=== PATIENT | male | born 1945 | race Caucasian/White ===

== ENCOUNTER → 2018-04-03 08:26 | Outpatient (CLI) | payer OTHER, SELFPAY ==
[2018-04-03 09:36] LABS: Add Manual Diff / Slide Review NO; Basophils Percent Auto 1.5 % (0-2); Eosinophils Percent Auto 13.7 % (2-4); Hematocrit 44.5 % (41-53); Hemoglobin 15.5 g/dL (13.5-17.5); Lymphocytes Percent Auto 33.9 % (25-40); Mean Corpuscular HGB Conc 34.7 % (30-36); Mean Corpuscular Hemoglobin 31.9 PG (26-34); Mean Corpuscular Volume 91.9 fL (80-100); Monocytes Percent Auto 8.5 % (3-14); Neutrophils Absolute Auto 1800 /uL (3000-5900); Neutrophils Percent Auto 42.4 % (50-75); Platelet Count 173 X10^3/uL (150-400); Red Blood Cell Count 4.84 X10^6/uL (4.5-5.9); Red Cell Distribution Width 13.2 % (11.6-14.8); White Blood Cell Count 4.2 X10^3/uL (4.5-11.0)
[2018-04-03 09:46] LABS: Alanine Aminotransferase 47 IU/L (21-72); Albumin 4.1 g/dL (3.5-5.0); Albumin Globulin Ratio 1.5 (1.0-2.8); Alkaline Phosphatase 59 U/L (38-126); Aspartate Aminotransferase 40 IU/L (17-59); BUN Creatinine Ratio 23.3 (6-22); Bilirubin Total 0.6 mg/dL (0.2-1.3); Blood Urea Nitrogen 21 mg/dL (9-20); Carbon Dioxide 28 mmol/L (22-32); Chloride 105 mmol/L (98-107); Cholesterol 188 mg/dL (140-199); Estimated Glomerular Filt Rate > 60.0 mL/min (>60); Globulin 2.7 g/dL (1.7-4.1); Glucose 99 mg/dL (80-110); HDL Cholesterol 46 mg/dL (40-60); HEMOLYSIS < 15 (0-50); LDL Cholesterol Calculated 116 mg/dL (<100); Potassium 4.3 mmol/L (3.4-5.1); Sodium 144 mmol/L (137-145); Total Protein 6.8 g/dL (6.3-8.2); Triglycerides 128 mg/dL (35-150)
[2018-04-03 10:12] LABS: Prostate Specific Antigen Scrn 0.501 ng/mL (0.1-4.0)
[2018-04-03 11:42] LABS: Thyroid Stimulating Hormone 1.38 uIU/mL (0.47-4.68)
== END ==
PROVIDERS: PCP Family Medicine; Visit Provider Family Medicine
DX: E78.2 Mixed hyperlipidemia (principal); I10 Essential (primary) hypertension; Z12.5 Encounter for screening for malignant neoplasm of prostate
CPT/HCPCS: 36415; 80053; 80061; 84443; 85025; G0103

== ENCOUNTER → 2019-05-11 07:47 | Outpatient (CLI) | payer OTHER, SELFPAY ==
[2019-05-11 08:33] LABS: Add Manual Diff / Slide Review NO; Basophils Absolute Auto 100 /uL (0-100); Basophils Percent Auto 1.9 % (0-2); Eosinophils Absolute Auto 600 /uL (0-450); Eosinophils Percent Auto 14.7 % (2-4); Hematocrit 44.5 % (41-53); Hemoglobin 15.7 g/dL (13.5-17.5); Lymphocytes Absolute Auto 1400 /uL (1100-4500); Lymphocytes Percent Auto 35.9 % (25-40); Mean Corpuscular HGB Conc 35.2 % (30-36); Mean Corpuscular Hemoglobin 32.2 PG (26-34); Mean Corpuscular Volume 91.4 fL (80-100); Monocytes Absolute Auto 400 /uL (0-900); Monocytes Percent Auto 10.2 % (3-14); Neutrophils Absolute Auto 1500 /uL (1500-7000); Neutrophils Percent Auto 37.3 % (50-75); Platelet Count 229 X10^3/uL (150-400); Red Blood Cell Count 4.87 X10^6/uL (4.5-5.9); Red Cell Distribution Width 13.2 % (11.6-14.8); White Blood Cell Count 3.9 X10^3/uL (4.5-11.0)
[2019-05-11 08:59] LABS: Alanine Aminotransferase 42 IU/L (21-72); Albumin 4.3 g/dL (3.5-5.0); Albumin Globulin Ratio 1.5 (1.0-2.8); Alkaline Phosphatase 59 U/L (38-126); Aspartate Aminotransferase 31 IU/L (17-59); BUN Creatinine Ratio 24.4 (6-22); Bilirubin Total 0.7 mg/dL (0.2-1.3); Blood Urea Nitrogen 22 mg/dL (9-20); Calcium 9.5 mg/dL (8.4-10.2); Carbon Dioxide 30 mmol/L (22-32); Chloride 102 mmol/L (98-107); Cholesterol 170 mg/dL (140-199); Estimated Glomerular Filt Rate > 60.0 mL/min (>60); Globulin 2.9 g/dL (1.7-4.1); Glucose 98 mg/dL (80-110); HDL Cholesterol 35 mg/dL (40-60); HEMOLYSIS < 15 (0-50); LDL Cholesterol Calculated 91 mg/dL (<100); Potassium 4.2 mmol/L (3.4-5.1); Sodium 139 mmol/L (137-145); Total Protein 7.2 g/dL (6.3-8.2); Triglycerides 218 mg/dL (35-150)
[2019-05-11 09:22] LABS: Prostate Specific Antigen Scrn 1.02 ng/mL (0.1-4.0)
[2019-05-11 09:23] LABS: Thyroid Stimulating Hormone 1.02 uIU/mL (0.47-4.68)
== END ==
PROVIDERS: PCP Family Medicine; Visit Provider Family Medicine
DX: Z13.1 Encounter for screening for diabetes mellitus (principal); E78.2 Mixed hyperlipidemia; I10 Essential (primary) hypertension; Z13.29 Encounter for screening for other suspected endocrine disorder; Z13.6 Encounter for screening for cardiovascular disorders; Z12.5 Encounter for screening for malignant neoplasm of prostate
CPT/HCPCS: 36415; 80053; 80061; 84443; 85025; G0103

== ENCOUNTER → 2020-06-19 07:57 | Outpatient (CLI) | payer OTHER, SELFPAY ==
[2020-06-19 08:30] LABS: Add Manual Diff / Slide Review NO; Basophils Absolute Auto 100 /uL (0-100); Basophils Percent Auto 1.3 % (0-2); Eosinophils Absolute Auto 600 /uL (0-450); Eosinophils Percent Auto 14.5 % (2-4); Hematocrit 44.9 % (41-53); Hemoglobin 15.2 g/dL (13.5-17.5); Lymphocytes Absolute Auto 1300 /uL (1100-4500); Lymphocytes Percent Auto 33.1 % (25-40); Mean Corpuscular HGB Conc 33.9 % (30-36); Mean Corpuscular Hemoglobin 31.2 PG (26-34); Monocytes Absolute Auto 400 /uL (0-900); Monocytes Percent Auto 9.5 % (3-14); Neutrophils Absolute Auto 1600 /uL (1500-7000); Neutrophils Percent Auto 41.6 % (50-75); Platelet Count 181 X10^3/uL (150-400); Red Blood Cell Count 4.88 X10^6/uL (4.5-5.9); Red Cell Distribution Width 13.4 % (11.6-14.8); White Blood Cell Count 3.9 X10^3/uL (4.5-11.0)
[2020-06-19 09:07] LABS: Alanine Aminotransferase 33 IU/L (<50); Albumin Globulin Ratio 1.5 (1.0-2.8); Alkaline Phosphatase 62 U/L (38-126); Aspartate Aminotransferase 31 IU/L (17-59); BUN Creatinine Ratio 25.6 (6-22); Bilirubin Total 0.6 mg/dL (0.2-1.3); Blood Urea Nitrogen 21 mg/dL (9-20); Calcium 9.2 mg/dL (8.4-10.2); Carbon Dioxide 28 mmol/L (22-32); Chloride 105 mmol/L (98-107); Cholesterol 209 mg/dL (140-199); Estimated Glomerular Filt Rate > 60.0 mL/min (>60); Globulin 2.6 g/dL (1.7-4.1); Glucose 112 mg/dL (80-110); HDL Cholesterol 55 mg/dL (40-60); HEMOLYSIS < 15 (0-50); LDL Cholesterol Calculated 132 mg/dL (<100); Potassium 4.3 mmol/L (3.4-5.1); Sodium 137 mmol/L (137-145); Total Protein 6.6 g/dL (6.3-8.2); Triglycerides 109 mg/dL (35-150)
== END ==
PROVIDERS: PCP Family Medicine; Referring Provider Family Medicine; Visit Provider Family Medicine
DX: E78.2 Mixed hyperlipidemia (principal); Z12.5 Encounter for screening for malignant neoplasm of prostate; I10 Essential (primary) hypertension
CPT/HCPCS: 36415; 80053; 80061; 85025; G0103

== ENCOUNTER → 2020-08-15 15:44 | Outpatient (CLI) | payer MEDICARE, SELFPAY ==
[2020-08-15] MEDS: COVID-19 VACC #1, MRNA(MOD) 100 MCG/0.5 ML VIAL IM (15:53)
== END ==
PROVIDERS: PCP Family Medicine; Visit Provider Internal Medicine
DX: Z23 Encounter for immunization (principal)
CPT/HCPCS: 0011A; 91301

== ENCOUNTER → 2020-09-14 13:00 | Outpatient (CLI) | payer MEDICARE, SELFPAY ==
[2020-09-14] MEDS: COVID-19 VACC #2, MRNA(MOD) 100 MCG/0.5 ML VIAL IM (13:06)
== END ==
PROVIDERS: PCP Family Medicine; Visit Provider Internal Medicine
DX: Z23 Encounter for immunization (principal)
CPT/HCPCS: 0012A; 91301

== ENCOUNTER → 2020-09-26 12:07 | Outpatient (CLI) | payer OTHER, SELFPAY ==
[2020-09-26 12:31] LABS: Add Manual Diff / Slide Review NO; Basophils Absolute Auto 0 /uL (0-100); Basophils Percent Auto 0.3 % (0-2); Eosinophils Absolute Auto 500 /uL (0-450); Eosinophils Percent Auto 10.4 % (2-4); Hematocrit 44.3 % (41-53); Hemoglobin 15.1 g/dL (13.5-17.5); Lymphocytes Absolute Auto 1600 /uL (1100-4500); Lymphocytes Percent Auto 32.9 % (25-40); Mean Corpuscular Hemoglobin 31.3 PG (26-34); Monocytes Absolute Auto 400 /uL (0-900); Monocytes Percent Auto 8.8 % (3-14); Neutrophils Absolute Auto 2400 /uL (1500-7000); Neutrophils Percent Auto 47.6 % (50-75); Platelet Count 199 X10^3/uL (150-400); Red Blood Cell Count 4.81 X10^6/uL (4.5-5.9); Red Cell Distribution Width 13.2 % (11.6-14.8)
[2020-09-26 12:51] LABS: Blood Urea Nitrogen 18 mg/dL (9-20); Calcium 9.7 mg/dL (8.4-10.2); Carbon Dioxide 29 mmol/L (22-32); Chloride 100 mmol/L (98-107); Cholesterol 189 mg/dL (140-199); Estimated Glomerular Filt Rate > 60.0 mL/min (>60); Glucose 100 mg/dL (80-110); HDL Cholesterol 55 mg/dL (40-60); HEMOLYSIS < 15 (0-50); LDL Cholesterol Calculated 113 mg/dL (<100); Potassium 4.4 mmol/L (3.4-5.1); Sodium 136 mmol/L (137-145); Triglycerides 103 mg/dL (35-150)
== END ==
PROVIDERS: PCP Student in an Organized Health Care Education/Training Program; Referring Provider Student in an Organized Health Care Education/Training Program; Visit Provider Student in an Organized Health Care Education/Training Program
DX: I10 Essential (primary) hypertension (principal); K62.5 Hemorrhage of anus and rectum; E78.2 Mixed hyperlipidemia
CPT/HCPCS: 36415; 80048; 80061; 85025

== ENCOUNTER → 2020-10-19 14:04 | Outpatient (CLI) | payer OTHER, SELFPAY ==
--- NOTE | 2020-10-19 14:07 | DI.US.S_ITS ---
PROCEDURE: US ABD AORTA ANEURYSM SCREEN INDICATIONS: AAA screen TECHNIQUE: Real time scanning was performed of the aorta and iliac arteries, with image documentation. COMPARISON: None. FINDINGS: Aorta: Proximal aortic diameter measures 1.5 cm. Mid-aorta measures 1.7 cm. Distal aortic diameter is 1.8 cm. Iliac arteries: Right common iliac artery measures 1.3 cm. Left common iliac artery measures 1.3 cm. IMPRESSION: Negative for aneurysm. Dictated by: Gerson Manzo M.D. on 10/19/2020 at 13:41 Approved by: Gerson Manzo M.D. on 10/19/2020 at 13:41
== END ==
PROVIDERS: PCP Student in an Organized Health Care Education/Training Program; Referring Provider Student in an Organized Health Care Education/Training Program; Visit Provider Student in an Organized Health Care Education/Training Program
DX: Z13.6 Encounter for screening for cardiovascular disorders (principal); Z87.891 Personal history of nicotine dependence
CPT/HCPCS: 76706

== ENCOUNTER → 2021-06-25 09:08 | Outpatient (CLI) | payer OTHER, SELFPAY ==
[2021-06-25 11:17] LABS: COVID19 -Nasal RAPID Negative (Negative)
== END ==
PROVIDERS: PCP Student in an Organized Health Care Education/Training Program; Referring Provider Surgery; Visit Provider Surgery
DX: Z20.822 Contact with and (suspected) exposure to COVID-19 (principal); Z01.812 Encounter for preprocedural laboratory examination
CPT/HCPCS: 87635; C9803

== ENCOUNTER 2021-06-26 06:36 | Day surgery (SDC) | payer OTHER, SELFPAY ==
[2021-06-21 12:47] VITALS: BMI 25.8
[2021-06-26] VITALS (9 sets, daily range): BP systolic 111–138; BP diastolic 51–84; PULSE 50–58; RESP 12–16; TEMP 36.4–36.8; O2SAT 92–98; BMI 25.8
[2021-06-26] MEDS: LACTATED RINGERS 1,000 ML 100 ML IV (07:10)
--- NOTE | 2021-06-26 07:31 | PM.HP.1 ---
History of Present Illness History of Present Illness Chief complaint: RIGHT INGUINAL HERNIA REPAIR Narrative: 76-year-old man here for elective open right inguinal hernia repair. No interval changes in health. Please refer to his H and P from March 2021 for further detail. Patient History Medical History Actinic keratosis Carpal tunnel syndrome (~2012) Hemorrhoid (~2001) Hypertension (~1989) Infection of nose Psoriasis (~1968) Surgical History Anesthesia History of shoulder surgery (~2005) Family & Social History Family History Father Heart disease Hypertension High cholesterol Stroke Mother Age: 96 Heart disease Hypertension Grandfather No problems noted. Grandmother No problems noted. Social History: household members spouse Tobacco & Substance use: Tobacco type cigarettes Smoking Status Former smoker alcohol intake current alcohol intake frequency 0-2 drinks per day Substance Use Type does not use Meds Home Medications and Allergies Home Medications Medication Instructions Recorded Confirmed Type lovastatin 20 mg tablet 30 mg PO DAILY #150 tab 07/04/20 06/26/21 Rx mupirocin 2 % topical ointment 1 applic TOPICAL BID PRN #15 g 07/04/20 03/28/21 Rx clotrimazole-betamethasone 1 1 applic TOPICAL BID #15 g 12/01/20 06/26/21 Rx %-0.05 % topical cream glucos sul 8FYc-fla-jhpvy-C-Mn 1 tab PO DAILY 03/28/21 06/26/21 History [Glucosamine Chondroitin] klpxuycidxgo-udr-ounni acid-vit 1 tab PO DAILY 03/28/21 06/26/21 History K-lycop 400 mcg-20 mcg-370 mcg tablet (One-A-Day Men's 50 Plus) omega-3 fatty acids [Fish Oil] 400 mg PO DAILY 03/28/21 06/26/21 History lisinopril 20 1 tab PO DAILY 06/21/21 06/26/21 History mg-hydrochlorothiazide 25 mg tablet Allergies Allergy/AdvReac Type Severity Reaction Status Date / Time levofloxacin Allergy Mild URTICARIA Verified 06/26/21 07:02 Exam Vital Signs (past 8 hours): - 06/26/21 07:27 Temperature 97.6 F Pulse Rate 58 L Respiratory Rate 12 Blood Pressure 138/83 Pulse Oximetry 96 Oxygen Delivery Method Room Air Narrative Exam Narrative: Constitutional-he is oriented to person, place and time. No apparent distress Cardiovascular- regular rate, no peripheral edema Pulmonary-unlabored respiratory effort, no audible wheezing Abdominal-reducible right inguinal hernia Musculoskeletal-no cyanosis or clubbing Neurological-nonfocal, normal strength throughout, normal gait. Skin-warm and dry Assessment & Plan Assessment and plan (1) Direct inguinal hernia of right side: Status: Acute Assessment & Plan narrative: 76M with a reducible right inguinal hernia here for elective open repair. Questions answered. Operative risks including bleeding, infection, chronic pain, reoccurrence, damage to surrounding structures was discussed. Will proceed. Time Spent With Patient Critical Care time: I spent a total of [] minutes of critical care time on this patient's care today; this time is exclusive of procedural time.
[2021-06-26] MEDS: CEFAZOLIN 2 GM/20 ML SYRINGE IV (07:50)
--- NOTE | 2021-06-26 08:06 | SUR.OPER ---
Supine on padded OR bed, head on pillow, arms secured on padded arm boards at <90 degrees abduction, legs uncrossed, safety belt at thigh, tape over blanket over lower legs.
[2021-06-26] MEDS: BUPIVACAINE 0.25% (PF) VIAL 30 ML INJ (08:14)
--- NOTE | 2021-06-26 09:02 | SUR.PHASEI ---
[facility] And[facility] and Jas RN after general anesthesia breathing unassisted on RA. Pt Drowsy, denies pain, nausea.
--- NOTE | 2021-06-26 09:09 | PM.OP.1 ---
Operative Date/Time/Diagnoses Date of procedure: 06/26/21 Time of procedure: 09:09 Pre-op diagnosis: Right inguinal hernia Post-op diagnosis: same Procedure & Clinicians Procedure: Open right inguinal repair with mesh Same procedure as scheduled: Yes Indications: Reducible symptomatic right inguinal hernia Surgeon: Jose Urrutia Yes if Unassisted: Yes Anesthesia Type: General Operative Notes Findings: Direct floor defect no indirect hernia Specimen(s): none sent Estimated Blood Loss (mL): 10 Procedure in detail: The patient was placed supine on the table and bilateral lower extremity compression devices were applied. Anesthesia was induced they were intubated with an LMA and received 2g of Ancef. A time-out was performed. They were prepped and draped in sterile fashion. The right external inguinal ring and the anterior superior iliac crest were identified and marked. 1 finger breath above the inguinal ligament the skin was infiltrated with 0.25% bupivacaine. The skin incision was made here and the subcutaneous tissues were divided with electrocautery exposing the external oblique aponeurosis which was then opened along the direction of its fibers. Using blunt dissection the internal oblique aporneurosis was from the external oblique upper leaflet to identify the iliohypogastric nerve. Using a kittner the cord was carefully dissected away from the inguinal canal adjacent to the pubic tubercle. The cord including the vas deferens, testicular bloody supply, ilioguinal and genital nerve were encircled with a Mary drain. A direct floor defect was identified and it was reduced into the abdomen and the internal oblique aporneuorsis was approximated to the inguinal ligament with Ethibond suture to reapproximate the floor over a plug of mesh. The cremasteric fibers surrounding the cord were divided using electrocautery adjacent to the internal ring.. The vas deferens and the testicular vessels were preserved and protected. There was no indirect hernia. I selected a 7x 15 cm lightweight Pro Loop hernia mesh. The inferior medial aspect of the mesh was anchored to insertion of the rectus muscle to the pubic tubercle such that there was approximately 2 cm of tubercle overlap with Ethibond and then was run continuously along the inferior edge of the mesh to the shelving edge of the inguinal ligament. Interrupted 3 0 Vicryl suture was used to anchor the superior aspect of the mesh to the conjoined tendon in several places. The tails were then reapproximated loosely around the spermatic cord. The tails of the mesh were then tucked under the external oblique aponeurosis. The repair was checked for hemostasis. The wound was irrigated with sterile saline. The external oblique aponeurosis was reapproximated in a running fashion using 3 0 Vicryl. The subcutaneous tissues were reapproximated with 3 0 Vicryl skin closed with 4 0 Monocryl followed by the application of Dermabond. At the end of the operation I ensured that both testicles were within the scrotum. The sponge instrument count at the end operation was correct. The patient emerged from anesthesia was extubated and transferred to the postoperative care unit in stable condition. A total of 30 ml of of 0.25% bupivicaine was used to infiltrate the skin. Complications: none Post-operative Condition: stable Disposition: same day surgery
--- NOTE | 2021-06-26 10:40 | SUR.PHASEII ---
0943 Pt discharged to home, WC to car to . Pt up in WC to BR and dressed independent. Denied pain and nausea.
== END 2021-06-26 09:55 | disposition home or self-care (01) ==
PROVIDERS: PCP Student in an Organized Health Care Education/Training Program; Referring Provider Surgery; Visit Provider Surgery
PROC: (CPT 49505; principal; 2021-06-26 07:45)
DX: K40.90 Unilateral inguinal hernia, without obstruction or gangrene, not specified as recurrent (principal); I10 Essential (primary) hypertension
CPT/HCPCS: 49505; C1781; J0690; J1100; J1885; J2250; J2405; J2704; J3010

== ENCOUNTER → 2021-08-07 11:18 | Outpatient (CLI) | payer OTHER, SELFPAY ==
--- NOTE | 2021-08-07 11:19 | DI.RAD.S_ITS ---
PROCEDURE: XR WRIST LT MIN 3V INDICATIONS: Left wrist pain and swelling after injury TECHNIQUE: 4 views of the wrist were acquired. COMPARISON: None. FINDINGS: Bones: No acute fractures or dislocations. No suspicious bony lesions. Severe degenerative changes are seen at the triscaphe joint with complete joint space narrowing and subchondral sclerosis. Mild 1st carpometacarpal joint degenerative changes are noted. Scaphoid view: Intact scaphoid. Soft tissues: No suspicious soft tissue calcifications. IMPRESSION: 1. No acute osseous abnormality. If clinical suspicion and/or symptoms persist, additional imaging with repeat plain films, or advanced imaging (e.g. CT, MRI) may be helpful for further assessment. 2. Severe triscaphe osteoarthrosis Dictated by: Jimbo Chen M.D. on 08/07/2021 at 13:13 Approved by: Jimbo Chen M.D. on 08/07/2021 at 13:15
== END ==
PROVIDERS: PCP Student in an Organized Health Care Education/Training Program; Referring Provider Student in an Organized Health Care Education/Training Program; Visit Provider Student in an Organized Health Care Education/Training Program
DX: M25.532 Pain in left wrist (principal)
CPT/HCPCS: 73110

== ENCOUNTER → 2021-08-10 17:53 | Outpatient (CLI) | payer OTHER, SELFPAY ==
--- NOTE | 2021-08-10 17:54 | DI.MRI.S_ITS ---
PROCEDURE: MR SHOULDER LT WO CON INDICATIONS: Left rotator cuff arthropathy TECHNIQUE: Noncontrast oblique coronal T2 fast spin echo with fat saturation, oblique sagittal T1 spin echo and T2 fast spin echo with fat saturation, axial T1 spin echo and T2 fast spin echo with fat saturation through the shoulder. COMPARISON: None. FINDINGS: Image quality: Excellent. Rotator cuff: Full-thickness tear of the supraspinatus, measuring 2.3 x 2 cm. Mild to moderate infraspinatus tendinopathy with partial articular surface and interstitial tears. Mild subscapularis tendinopathy with partial articular surface tear. Sagittal images demonstrate grade 2 supraspinatus muscle atrophy. Bones and bursae: No bone marrow contusions or fractures. Mild acromioclavicular joint degeneration with T2 hyperintense signal within the articulation. No os acromiale. Subacromial-subdeltoid fluid is present, which may be related to the aforementioned rotator cuff tear. Capsule and soft tissues: Signal in the anterior labrum (series 12/13 12), which may reflect degenerative tear. The biceps tendon is not seen within the bicipital groove, which may reflect tear versus postsurgical change. Small to moderate glenohumeral joint effusion with fluid extending into the superior subscapular recess. The coracohumeral ligament is normal in thickness. IMPRESSION: 1. Full-thickness tear of the supraspinatus as detailed above. 2. Mild to moderate infraspinatus tendinopathy with partial articular surface and interstitial tears. 3. Mild subscapularis tendinopathy with partial articular surface tear. 4. Mild AC joint degeneration. 5. Small to moderate joint effusion, which extends into the subacromial/subdeltoid bursa. 6. Tear within the anterior labrum, likely degenerative. 7. Biceps tendon tear versus postsurgical change. Dictated by: Son Tee M.D. on 08/13/2021 at 8:20 Approved by: Son Tee M.D. on 08/13/2021 at 8:38
== END ==
PROVIDERS: PCP Student in an Organized Health Care Education/Training Program; Referring Provider Student in an Organized Health Care Education/Training Program; Visit Provider Student in an Organized Health Care Education/Training Program
DX: M75.122 Complete rotator cuff tear or rupture of left shoulder, not specified as traumatic (principal); M19.012 Primary osteoarthritis, left shoulder; M25.412 Effusion, left shoulder; S43.492A Other sprain of left shoulder joint, initial encounter
CPT/HCPCS: 73221

== ENCOUNTER → 2021-08-17 12:10 | Outpatient (CLI) | payer OTHER, SELFPAY ==
--- NOTE | 2021-08-17 12:15 | DI.RAD.S_ITS ---
PROCEDURE: XR PELVIS 1-2V INDICATIONS: lumbago w/ sciatica (rt side) TECHNIQUE: 1 view(s) of the pelvis acquired. COMPARISON: [facility], , PELVIS WITH BILATERAL HIPS, 01/31/2015, 10:37. FINDINGS: Bones: No fractures or dislocations. No suspicious bony lesions. Soft tissues: Visualized bowel gas pattern is normal. No suspicious soft tissue calcifications. IMPRESSION: Normal pelvis Dictated by: Yared Thomas M.D. on 08/17/2021 at 14:16 Approved by: Yared Thomas M.D. on 08/17/2021 at 14:17
--- NOTE | 2021-08-17 12:15 | DI.RAD.S_ITS ---
PROCEDURE: XR LUMBAR SPINE MIN 4V INDICATIONS: lumbago w/ sciatica (rt side)' TECHNIQUE: Three views of the lumbar spine. COMPARISON: [facility], , L-SPINE 2-3 VIEWS, 01/31/2015, 10:37. FINDINGS: Bones: 5 nonrib-bearing vertebrae are present. Mild scoliosis. Moderate degenerative change progressed compared to 2015. Lower lumbar spine facet joint hypertrophy. Intervertebral disc space height loss. No vertebral body compression fractures. No suspicious bony lesions. Soft tissues: Overlying bowel gas pattern is normal. No suspicious soft tissue calcifications. IMPRESSION: Moderate degenerative change and DDD. Dictated by: Mike Borrego M.D. on 08/17/2021 at 14:19 Approved by: Mike Borrego M.D. on 08/17/2021 at 14:21
== END ==
PROVIDERS: PCP Student in an Organized Health Care Education/Training Program; Referring Provider Chiropractor; Visit Provider Chiropractor
DX: M51.16 Intervertebral disc disorders with radiculopathy, lumbar region (principal); M47.26 Other spondylosis with radiculopathy, lumbar region; M41.9 Scoliosis, unspecified
CPT/HCPCS: 72110; 72170

== ENCOUNTER → 2021-08-27 06:42 | Outpatient (CLI) | payer OTHER, SELFPAY ==
--- NOTE | 2021-08-27 | DI.MRI.S_ITS ---
PROCEDURE: MR LUMBAR SPINE WO CON INDICATIONS: Spinal stenosis, lumbar region TECHNIQUE: Noncontrast sagittal T1 spin echo and T2 fast echo, sagittal STIR, axial T1 and T2 fast spin echo through the lumbar spine. In cases with scoliosis, additional coronal T2 fast spin echo may be performed. COMPARISON: None. FINDINGS: Image quality: Excellent. Alignment and Curvature: Minimal retrolisthesis is seen at L1-L2 and L2-L3. Minimal retrolisthesis is also seen at L5-S1. Bone Marrow: The bone marrow is diffusely heterogeneous. A few areas of abnormal bone marrow edema can be seen with increased T2 weighted/STIR signal and decreased T1 weighted signal. The most prominent of these can be seen within the posterior right L3 level. Spinal Cord: Conus medullaris terminates at the L1 level. Visualized cord demonstrates normal signal and size. Paraspinous Soft Tissues: No paravertebral masses. T12-L1: The disc height and disk signal are well-preserved. Mild generalized disc bulge is seen. There is a mild central disc protrusion. No significant neural foraminal or central canal narrowing can be seen. L1-L2: Mild loss of disc height and disc signal can be seen. Mild generalized disc bulge is seen. Mild facet joint hypertrophy is seen. There is moderate right-sided and moderate to severe left-sided neural foraminal narrowing. There is a mild degree of compression seen upon the exiting left L1 nerve root. Mild central canal narrowing is seen. L2-L3: The disc height is well-preserved. Loss of disc signal is seen at this level. Mild to moderate disc bulge is seen. Moderate facet joint hypertrophy is seen. There is [id number] left-sided and moderate to severe right-sided neural foraminal narrowing. There is a mild degree of compression seen upon the exiting right L2 nerve root. Moderate central canal narrowing is seen. L3-L4: Mild loss of disc height is seen. Loss of disc signal is seen. Mild generalized disc bulge is seen. Moderate facet joint hypertrophy is seen on the right, with mild facet hypertrophy seen on the left. There is mild left-sided and moderate to severe right-sided neural foraminal narrowing. There is a mild degree of compression seen upon the exiting right L3 nerve root. Mild to moderate central canal narrowing is seen. L4-L5: Moderate loss of disc height is seen. Loss of disc signal is seen. Moderate generalized disc bulge is seen. Moderate facet joint hypertrophy is seen. There is moderate left-sided and moderate to severe right-sided neural foraminal narrowing. There is a mild degree of compression seen upon the exiting right L4 nerve root. Mild central canal narrowing is seen. L5-S1: Mild loss of disc height is seen. Loss of disc signal is seen. Moderate generalized disc bulge is seen. Mild facet joint hypertrophy is seen. There is at least moderate right-sided and moderate to severe left-sided neural foraminal narrowing. There is a mild degree of compression seen upon the exiting L5 nerve roots. Mild central canal narrowing is seen. IMPRESSION: Multiple levels of lumbar spine degenerative change are seen. Several sites of significant neural foraminal narrowing can be seen, with associated exiting nerve root compression. Scattered areas of mild bone marrow edema can be seen. In a patient of this age, differential diagnosis includes metastatic disease. Please consider follow-up contrast-enhanced MRI versus whole-body nuclear medicine bone scan for further evaluation. Dictated by: Gerson Manzo M.D. on 08/27/2021 at 16:25 Approved by: Gerson Manzo M.D. on 08/27/2021 at 16:31
== END ==
PROVIDERS: PCP Student in an Organized Health Care Education/Training Program; Referring Provider Physical Medicine & Rehabilitation Pain Medicine; Visit Provider Physical Medicine & Rehabilitation Pain Medicine
DX: M48.062 Spinal stenosis, lumbar region with neurogenic claudication (principal); M48.07 Spinal stenosis, lumbosacral region; M47.816 Spondylosis without myelopathy or radiculopathy, lumbar region; M47.817 Spondylosis without myelopathy or radiculopathy, lumbosacral region
CPT/HCPCS: 72148

== ENCOUNTER → 2021-09-14 14:39 | Outpatient (CLI) | payer OTHER, SELFPAY ==
[2021-09-14 15:57] LABS: BUN Creatinine Ratio 16.8 (6-22); Blood Urea Nitrogen 17 mg/dL (9-20); Carbon Dioxide 30 mmol/L (22-32); Chloride 98 mmol/L (98-107); Estimated Glomerular Filt Rate > 60.0 mL/min (>60); Glucose 136 mg/dL (80-110); HEMOLYSIS < 15 (0-50); Potassium 3.6 mmol/L (3.4-5.1); Sodium 134 mmol/L (137-145)
[2021-09-14 16:29] LABS: Prostate Specific Antigen 0.517 ng/mL (0.10-4.00)
== END ==
PROVIDERS: PCP Student in an Organized Health Care Education/Training Program; Referring Provider Student in an Organized Health Care Education/Training Program; Visit Provider Student in an Organized Health Care Education/Training Program
DX: R93.5 Abnormal findings on diagnostic imaging of other abdominal regions, including retroperitoneum (principal); R93.7 Abnormal findings on diagnostic imaging of other parts of musculoskeletal system; N14.1 Nephropathy induced by other drugs, medicaments and biological substances; T50.8X5A Adverse effect of diagnostic agents, initial encounter
CPT/HCPCS: 36415; 80048; 84153

== ENCOUNTER → 2021-09-16 08:38 | Outpatient (CLI) | payer OTHER, SELFPAY ==
--- NOTE | 2021-09-16 08:39 | DI.MRI.S_ITS ---
PROCEDURE: MR LUMBAR SPINE W CON INDICATIONS: F/u abnormal MR lumbar spine TECHNIQUE: Limited sagittal and axial fat suppressed postcontrast imaging was obtained utilizing intravenous gadolinium based contrast. COMPARISON: [facility], MR, MR LUMBAR SPINE WO CON, 08/27/2021, 6:55. FINDINGS: Multilevel degenerative changes are again note Approved by: Richard Jean M.D. on 09/17/2021 at 12:39 d, better depicted on the prior exam. There is focal enhancement in the superior posterior corner of the L3 vertebral body and corresponding with edema and probable Schmorl's node on the prior exam. Mild enhancement is noted involving the anterior T12 vertebral body and posterior superior corner of the L5 vertebral body as well which appears degenerative. No evidence of paraspinal mass lesion or intrathecal enhancement. IMPRESSION: 1. Focal L3 enhancement is probably related to Schmorl's node of the superior endplate or lipid poor hemangioma. Consider further evaluation with bone scan to exclude neoplastic involvement.
--- NOTE | 2021-09-16 08:39 | DI.MRI.S_ITS ---
PROCEDURE: MR PELIS WO/W CON INDICATIONS: f/u abnormal MR lumbar spine TECHNIQUE: Noncontrast coronal T1 spin echo and STIR, sagittal T1 spin echo with fat saturation and STIR, axial T1 spin echo and T2 fast spin echo with fat saturation. After the administration of contrast, axial/sagittal/coronal T1 spin echo with fat saturation through the pelvis. COMPARISON: [facility], MR, MR LUMBAR SPINE WO CON, 08/27/2021, 6:55. FINDINGS: Image quality: Excellent. Bones: Mildly heterogeneous marrow signal throughout bony pelvis and visualized lower lumbar spine is seen. No marrow edema. No discrete suspicious intraosseous lesion is identified. Osteoarthritic changes are noted in bilateral sacroiliac joints, hip joints and symphysis pubis. No bony erosion or ankylosis is seen in bilateral sacroiliac joints. No evidence of avascular necrosis of femoral head. No abnormal intraosseous enhancement. Soft tissues: There is no pelvic free fluid. No abnormal bowel wall thickening or bladder wall thickening. No pelvic lymphadenopathy. There is suggestion of right distal gluteus medius and minimus tendinosis at their greater trochanteric insertion. Tendinosis and low-grade partial-thickness tear involving right hamstring tendon origin at ischial tuberosity is seen. No discrete soft tissue mass or abnormal soft tissue enhancement. No intramuscular mass or fluid collection. IMPRESSION: 1. Slightly heterogeneous marrow signal throughout bony pelvis and in visualized lower lumbar spine without discrete enhancing intraosseous lesion seen. No pathologic fracture or marrow edema. 2. Osteoarthritis throughout bony pelvis. No evidence of avascular necrosis of femoral head. No ankylosis or erosion is seen in bilateral sacroiliac joints. 3. Tendinosis and low-grade partial-thickness tear involving distal right gluteus medius and minimus tendons at their insertions on greater trochanter. Tendinosis and low-grade partial-thickness tear involving right hamstring tendon origin at ischial tuberosity. No enhancing soft tissue mass or abnormal enhancement. Dictated by: Larry Mccormick M.D. on 09/17/2021 at 12:05 Approved by: Larry Mccormick M.D. on 09/17/2021 at 12:16
== END ==
PROVIDERS: PCP Student in an Organized Health Care Education/Training Program; Referring Provider Student in an Organized Health Care Education/Training Program; Visit Provider Student in an Organized Health Care Education/Training Program
DX: M19.09 Primary osteoarthritis, other specified site; S39.013A Strain of muscle, fascia and tendon of pelvis, initial encounter; R93.7 Abnormal findings on diagnostic imaging of other parts of musculoskeletal system; R93.5 Abnormal findings on diagnostic imaging of other abdominal regions, including retroperitoneum
CPT/HCPCS: 72149; 72197; A9579

== ENCOUNTER → 2021-10-25 09:41 | Outpatient (CLI) | payer OTHER, SELFPAY ==
--- NOTE | 2021-10-25 09:42 | DI.NM.S_ITS ---
PROCEDURE: NM BONE SCAN WHOLE BODY RADIOPHARMACEUTICAL: 19.3 mCi Tc-99m MDP IV. INDICATIONS: Eval finding on MRI L-spine at L3 TECHNIQUE: Delayed whole-body scintigrams were obtained approximately 3-4 hours after intravenous injection of radiotracer. Anterior and posterior views were acquired from vertex to feet. Additional left and right oblique views of the thoracic and lumbar spine were obtained. COMPARISON: [facility], MR, MR PELVIS WO/W CON, 09/16/2021, 8:58. [facility], CR, XR LUMBAR SPINE MIN 4V, 08/17/2021, 12:08. [facility], MR, MR LUMBAR SPINE WO CON, 08/27/2021, 6:55. [facility], MR, MR LUMBAR SPINE W CON, 09/16/2021, 9:37. FINDINGS: There is mildly increased activity in L3. There are foci of increased uptake in cervical, thoracic and lumbar spine with distribution indistinguishable from degenerative disc and facet disease; early metastasis to spine could be obscured by degenerative changes. Low level increased paranasal activity is most likely related to paranasal sinus disease. No lesions are identified in skull, sternum, clavicles, scapulae, ribs, bony pelvis, and visualized shafts of the long bones. There are foci of increased periarticular activity involving shoulders, sternoclavicular joints, elbows, wrists, hands, hips, SI joints, right knee and both feet, compatible with degenerative/arthritic changes. IMPRESSION: 1. Low-level increased uptake in L3 area, which is indistinguishable from adjacent degenerative changes. Dictated by: John Jason M.D. on 10/25/2021 at 15:00 Approved by: John Jason M.D. on 10/26/2021 at 10:09
== END ==
PROVIDERS: PCP Student in an Organized Health Care Education/Training Program; Referring Provider Student in an Organized Health Care Education/Training Program; Visit Provider Student in an Organized Health Care Education/Training Program
DX: R93.7 Abnormal findings on diagnostic imaging of other parts of musculoskeletal system (principal)
CPT/HCPCS: 78306; A9503

== ENCOUNTER → 2022-01-15 11:51 | Outpatient (CLI) | payer OTHER, SELFPAY ==
[2022-01-15 12:58] LABS: BUN Creatinine Ratio 18.6 (6-22); Blood Urea Nitrogen 16 mg/dL (9-20); Calcium 8.5 mg/dL (8.4-10.2); Carbon Dioxide 27 mmol/L (22-32); Chloride 102 mmol/L (98-107); Estimated Glomerular Filt Rate > 60 mL/min (>60); Glucose 129 mg/dL (80-110); HEMOLYSIS < 15 (0-50); Sodium 137 mmol/L (137-145)
== END ==
PROVIDERS: PCP Student in an Organized Health Care Education/Training Program; Referring Provider Student in an Organized Health Care Education/Training Program; Visit Provider Student in an Organized Health Care Education/Training Program
DX: Z01.818 Encounter for other preprocedural examination (principal)
CPT/HCPCS: 36415; 80048

== ENCOUNTER → 2022-01-17 12:08 | Outpatient (CLI) | payer OTHER, SELFPAY ==
--- NOTE | 2022-01-17 12:09 | DI.CT.S_ITS ---
PROCEDURE: CT ABDOMEN PELVIS W CON INDICATIONS: RLQ pain. Prior right-sided hernia repair. TECHNIQUE: After the administration of oral and intravenous contrast, axial sections were acquired from the lung bases to the pubic symphysis. Coronal and sagittal reformats were performed. For radiation dose reduction, the following was used: automated exposure control, adjustment of mA and/or kV according to patient size. COMPARISON:None. FINDINGS: Image quality: Excellent. Images are denoted as (series #/image #). Lung bases: No pleural effusion. ABDOMEN: Liver: Unremarkable. Gallbladder: Unremarkable. Biliary ducts: Unremarkable. Pancreas: A 2.0 cm cyst is present at the pancreatic head anteriorly (09/07). No dilation of the main pancreatic duct demonstrated. Spleen: Unremarkable. Adrenal Glands: Unremarkable. Kidneys and Ureters: Unremarkable. Stomach and Bowel: No evidence of mechanical bowel obstruction. Moderate predominantly sigmoid colonic diverticulosis without evidence of acute diverticulitis. Normal appendix. Peritoneum: No abnormal intraperitoneal fluid. No free air. Ventral Wall: A small periumbilical hernia is present containing a non-dilated loop of small bowel. The neck of the hernia measures approximately 10 mm in the sagittal plane (40). Abdominal Nodes: No retroperitoneal or mesenteric adenopathy by size criteria. Vessels: Aorta and inferior vena cava are normal in size. PELVIS: Pelvic Organs: Unremarkable. Bladder: Unremarkable. Pelvic Nodes: No enlarged lymph nodes. Miscellaneous: No inguinal hernias are seen. Lobulated density in the right inguinal region adjacent to the upper spermatic cord is suspected to represent changes from prior herniorrhaphy (for example ). Bones: Multilevel degenerative change of the visualized spine. IMPRESSION: 1. Normal appendix. 2. Lobulated density in the right inguinal region is suspected to represent changes from prior herniorrhaphy. Correlation with prior surgical history for history of right inguinal hernia repair may be helpful. If this does represent post herniorrhaphy change, no definite complication is identified by CT. If no prior herniorrhaphy performed, additional imaging such as ultrasound may be helpful for further evaluation. 3. Small periumbilical hernia present containing a nondilated loop of small bowel. No evidence of mechanical small bowel obstruction. 4. Colonic diverticulosis without evidence of acute diverticulitis. 5. Incidental note of a 2.0 cm cyst at the pancreatic head. This is a nonspecific finding, but could represent a side branch IPMN. Per ACR incidental findings guidelines, initial imaging follow-up is recommended in 6 months. At the time of follow-up, MRI of the pancreas with and without contrast is recommended. Dictated by: Jimbo Cox M.D. on 01/17/2022 at 15:50 Approved by: Jimbo Cox M.D. on 01/17/2022 at 16:12
== END ==
PROVIDERS: PCP Student in an Organized Health Care Education/Training Program; Referring Provider Student in an Organized Health Care Education/Training Program; Visit Provider Student in an Organized Health Care Education/Training Program
DX: R10.31 Right lower quadrant pain (principal); K42.9 Umbilical hernia without obstruction or gangrene; K57.30 Diverticulosis of large intestine without perforation or abscess without bleeding; K86.2 Cyst of pancreas; Z98.890 Other specified postprocedural states
CPT/HCPCS: 74177

== ENCOUNTER → 2022-07-18 08:05 | Outpatient (CLI) | payer OTHER, SELFPAY ==
--- NOTE | 2022-07-18 08:05 | DI.MRI.S_ITS ---
PROCEDURE: MR ABDOMEN WO/W CON INDICATIONS: Reassess incidental pancreatic mass from December 2021 TECHNIQUE: Coronal HASTE, axial 2D FLASH in- and [id number]; axial breath-hold T2 FSE with fat saturation from the hepatic dome to the iliac crests. Oblique coronal thin-slice and radial thick slab HASTE through the biliary system. Dynamic axial VIBE during administration of contrast. Post-contrast coronal VIBE or 2D FLASH with fat saturation from the hepatic dome to the iliac crests. Optional diffusion weighted imaging and ADC may be performed. COMPARISON: [facility], CT, CT ABDOMEN PELVIS W CON, 01/17/2022, 12:43. FINDINGS: Image quality: Some sequences are motion degraded Lower chest: No basal effusions. Lungs are not well evaluated on this study. Solid organs: Liver is unremarkable. Gallbladder is unremarkable. The CBD is prominent at 6-7 mm., this was present previously. No pathologic dilation of the pancreatic duct. As seen on CT, there is cyst at the pancreatic head/neck measuring 2.3 by 1.5 cm. This is slightly larger compared to January when it measured 2.1-2.2 cm x 1.3 cm. No splenomegaly. No adrenal nodules. No hydronephrosis. Vessels and lymph nodes: No abdominal aortic aneurysm. No pathologic adenopathy by size criteria. Bowel and peritoneum: No bowel obstruction. No pathologic ascites. Body wall: Anterior abdominal wall postsurgical changes. Bones: Degenerative changes, endplate Modic changes. No acute or focal suspicious osseous lesions. IMPRESSION: A cystic lesion at the pancreatic neck measuring up to 2.3 cm, possible slightly enlargement compared to prior CT in January. Consider further 6 month follow-up imaging versus EUS/FNA in consultation with GI. Other incidental/stable findings as above. Dictated by: Dorian Jennings M.D. on 07/18/2022 at 10:21 Approved by: Dorian Jennings M.D. on 07/18/2022 at 10:30
== END ==
PROVIDERS: PCP Student in an Organized Health Care Education/Training Program; Referring Provider Student in an Organized Health Care Education/Training Program; Visit Provider Student in an Organized Health Care Education/Training Program
DX: K86.89 Other specified diseases of pancreas (principal)
CPT/HCPCS: 74183

== ENCOUNTER → 2023-01-12 07:10 | Outpatient (CLI) | payer OTHER, SELFPAY ==
--- NOTE | 2023-01-12 08:10 | DI.MRI.S_ITS ---
PROCEDURE: MR AB PANCREATIC/MRCP PROTOCOL INDICATIONS: 6 mo f/u MRI pancreatic mass TECHNIQUE: Coronal HASTE through the abdomen, axial 2-D FLASH in- and [id number], and breath-hold T2 FSE with fat saturation through the biliary system and pancreas. Oblique coronal and axial thin-slice HASTE, radial thick-slab HASTE centered on the extrahepatic bile ducts. Intravenous secretin: Not requested. COMPARISON: [facility], MR, MR ABDOMEN WO/W CON, 07/18/2022, 8:49. FINDINGS: Pancreas and biliary system: Intra- and extra-hepatic biliary ducts are non dilated. Previously demonstrated cyst at the pancreatic head/neck measures 2.5 x 1.4 centimeters (axial T2 haste series 5, image 19) previously 2.4 x 1.3 centimeters when remeasured on the prior exam, not significantly changed. Pancreatic duct is normal in caliber. Gallbladder is unremarkable . Other solid organs: Liver is normal in size. Spleen is normal in size. No adrenal nodules. Both kidneys are normal in size, without hydronephrosis. Nodes and vessels: No retroperitoneal or mesenteric adenopathy by size criteria. Aorta and inferior vena cava are normal in size. Bowel and peritoneum: Unenhanced bowel loops are normal in caliber. No free fluid. Lung bases: No basal pleural effusions. IMPRESSION: Compared to the prior exam, no significant interval change in the previously demonstrated cystic lesion of the pancreatic head/neck measuring up to 2.5 centimeters. Six month follow-up or EUS/FNA recommended per ACR guidelines. Dictated by: Jimbo Cox M.D. on 01/13/2023 at 8:48 Approved by: Jimbo Cox M.D. on 01/13/2023 at 9:06
== END ==
PROVIDERS: PCP Student in an Organized Health Care Education/Training Program; Referring Provider Pediatrics; Visit Provider Pediatrics
DX: K86.89 Other specified diseases of pancreas (principal)
CPT/HCPCS: 74183; A9579

== ENCOUNTER → 2023-03-21 06:57 | Outpatient (CLI) | payer OTHER, SELFPAY ==
[2023-03-21 08:40] LABS: Hematocrit 44.4 % (41-53); Hemoglobin 15.6 g/dL (13.5-17.5); Mean Corpuscular HGB Conc 35.2 % (30-36); Mean Corpuscular Hemoglobin 32.5 PG (26-34); Mean Corpuscular Volume 92.5 fL (80-100); Platelet Count 188 X10^3/uL (150-400); Red Cell Distribution Width 13.6 % (11.6-14.8); White Blood Cell Count 4.3 X10^3/uL (4.5-11.0)
[2023-03-21 08:41] LABS: Add Manual Diff / Slide Review YES
[2023-03-21 08:52] LABS: Hemoglobin A1C% w Est Avg Glu 5.1 % (4.0-6.0)
[2023-03-21 08:56] LABS: Neutrophils Absolute Manual 1720 /uL (3000-5900); Total Cells Counted 100
[2023-03-21 08:57] LABS: RBC Morphology Normal Morphology
[2023-03-21 09:38] LABS: Alanine Aminotransferase 44 IU/L (<50); Albumin 4.3 g/dL (3.5-5.0); Albumin Globulin Ratio 1.7 (1.0-2.8); Alkaline Phosphatase 57 U/L (38-126); Aspartate Aminotransferase 39 IU/L (17-59); BUN Creatinine Ratio 17.7 (6-22); Bilirubin Total 0.9 mg/dL (0.2-1.3); Blood Urea Nitrogen 14 mg/dL (9-20); Calcium 9.1 mg/dL (8.4-10.2); Carbon Dioxide 29 mmol/L (22-32); Chloride 97 mmol/L (98-107); Estimated Glomerular Filt Rate > 60 mL/min (>60); Globulin 2.5 g/dL (1.7-4.1); Glucose 93 mg/dL (80-110); HEMOLYSIS < 15 (0-50); Potassium 3.9 mmol/L (3.4-5.1); Sodium 134 mmol/L (137-145); Total Protein 6.8 g/dL (6.3-8.2)
[2023-03-21 10:07] LABS: Prostate Specific Antigen Scrn 0.549 ng/mL (0.1-4.0)
== END ==
PROVIDERS: PCP Family Medicine; Referring Provider Family Medicine; Visit Provider Family Medicine
DX: E78.2 Mixed hyperlipidemia (principal); R73.9 Hyperglycemia, unspecified; Z12.5 Encounter for screening for malignant neoplasm of prostate; I10 Essential (primary) hypertension
CPT/HCPCS: 36415; 80053; 83036; 85007; 85025; G0103

== ENCOUNTER → 2023-05-15 12:12 | Outpatient (CLI) | payer OTHER, SELFPAY ==
--- NOTE | 2023-05-15 12:12 | DI.CT.S_ITS ---
PROCEDURE: CT SINUS SCREEN WO CON INDICATIONS: eval and treat chronic nasal obstruction TECHNIQUE: Noncontrast 3.0 mm axial images acquired from the frontal sinuses to the mid-sella, with coronal and sagittal reformats. For radiation dose reduction, the following was used: automated exposure control, adjustment of mA and/or kV according to patient size. COMPARISON: [facility], CT, SINUS SCREEN, 08/03/2007, 8:48. [facility], CT, SINUS SCREEN, 06/23/2007, 11:31. [facility], CT, SINUS SCREEN WO CONTRAST, 04/02/2016, 12:12. FINDINGS: Image quality: Excellent. Maxillary Sinuses: There is moderate mucosal thickening seen involving the maxillary sinuses. There is demineralization of the superior aspects of medial sparrow of maxillary sinuses. Ethmoid Air Cells: At least moderate mucosal thickening can be seen involving the ethmoid air cells, which is worst anteriorly. There is demineralization of the ethmoid air cell septations. Sphenoid Sinuses: There is moderate mucosal thickening seen on the right and there is mild mucosal thickening seen on the left. No definite bony changes are seen. Frontal Sinuses: There is at least moderate mucosal thickening involving the inferior medial left frontal sinus. [id number] mucosal thickening can be seen involving the inferior medial right frontal sinus. The external sparrow of the frontal sinuses appear thickened. Ostiomeatal Complexes: The ostiomeatal complexes are patent, yet they are constitutionally narrowed, with bilateral Kriss cells. The ostiomeatal complexes are further narrowed by prominent soft tissue thickening. The ostiomeatal complexes are demineralized. Miscellaneous: Visualized intra-orbital contents are normal. There is a moderate left-sided meagan bullosa. Moderate rightward nasal septal deviation is seen. IMPRESSION: Widespread mucosal thickening is seen, which is more prominent than 2016. The ostiomeatal complexes are patent, yet they are constitutionally narrowed, with bilateral Kriss cells. Areas of bony demineralization are seen, which are consistent with chronic sinusitis. Dictated by: Gerson Manzo M.D. on 05/15/2023 at 12:11 Approved by: Gerson Manzo M.D. on 05/15/2023 at 12:14
== END ==
PROVIDERS: PCP Family Medicine; Referring Provider Family Medicine; Visit Provider Family Medicine
DX: J32.4 Chronic pansinusitis (principal); J34.89 Other specified disorders of nose and nasal sinuses; J34.2 Deviated nasal septum
CPT/HCPCS: 70486

== ENCOUNTER 2023-05-29 06:37 | Day surgery (SDC) | payer OTHER, SELFPAY ==
[2023-05-29 07:19] VITALS: BP 161/88; PULSE 79; RESP 18; TEMP 36.1; O2SAT 95; BMI 25.8
[2023-05-29] MEDS: LACTATED RINGERS 1,000 ML 42 ML IV (07:30)
--- NOTE | 2023-05-29 07:45 | PM.HP.1 ---
History of Present Illness History of Present Illness Date Patient Seen: 05/29/23 Time Patient Seen: 07:45 Chief complaint: Screening Colonoscopy Narrative: Jose is a 78 year old man who presents for a colonoscopy. His last one was in 2018 and was normal. He does not think he has ever had polyps removed. He did have diverticulosis. He has no family history of colon cancer. He reports that he had an episode of dark blood for about 3 days about 2 years ago and has not recurred. [facility] Medical History (Updated 05/29/23 @ 07:46 by Negrito Arriola MD) Nasal septal deviation Hyperglycemia Infection of nose Actinic keratosis Carpal tunnel syndrome (~2012) Psoriasis (~1968) Hemorrhoid (~2001) Hypertension (~1989) Surgical History H/O inguinal hernia repair Anesthesia History of shoulder surgery (~2005) Family History Father Heart disease Hypertension High cholesterol Stroke Mother Age: 98 Heart disease Hypertension Grandfather No problems noted. Grandmother No problems noted. Social History household members: spouse Smoking Status: Former smoker alcohol intake: current Meds Home Medications and Allergies Home Medications Medication Instructions Recorded Confirmed Type clotrimazole-betamethasone 1 1 applic topical BID PRN Rash 07/16/21 05/29/23 History %-0.05 % topical cream lisinopril 20 mg tablet 20 mg PO BEDTIME #90 tabs 03/28/23 05/29/23 Rx lisinopril 20 1 tab PO DAILY #90 tabs 03/28/23 05/29/23 Rx mg-hydrochlorothiazide 25 mg tablet lovastatin 20 mg tablet 30 mg (1.5 x 20 mg) PO DAILY #135 04/25/23 05/29/23 Rx tabs mometasone 50 mcg/actuation nasal 2 spray intranasal DAILY PRN nasal 05/08/23 05/29/23 Rx spray (Nasonex 24hr Allergy) congestion #17 grams mupirocin 2 % topical ointment 1 applic topical BID PRN Infection 05/08/23 05/29/23 Rx #15 grams Allergies Allergy/AdvReac Type Severity Reaction Status Date / Time levofloxacin Allergy Mild URTICARIA Verified 05/29/23 07:12 Exam Vital Signs (past 8 hours): - 05/29/23 07:19 Temperature 96.9 F L Pulse Rate 79 Respiratory Rate 18 Blood Pressure 161/88 H Pulse Oximetry 95 Oxygen Delivery Method Room Air Oxygen Delivery Method Room Air Const General: healthy appearing Assessment & Plan Assessment and plan (1) Colon cancer screening: Status: Acute Plan We reviewed the risks and benefits of colonoscopy for colon cancer screening and he would like to proceed.
[2023-05-29 08:10] VITALS: BP 109/63; PULSE 59; RESP 20; TEMP 36.4; O2SAT 92
--- NOTE | 2023-05-29 08:13 | PM.OP.COLON ---
Operative Date/Time/Diagnoses Date of procedure: 05/29/23 Time of procedure: 08:13 Pre-op diagnosis: Colon cancer screening Post-op diagnosis: same Procedure & Clinicians Study performed: Colonoscopy Same procedure as scheduled: Yes Surgeon: Negrito Arriola Procedure Notes Procedure in detail: Surgeon: Negrito Arriola MD Anesthesia: Hemalatha Vázquez CRNA Procedure: The patient was brought to the endoscopy suite, placed in left lateral decubitus position. The patient was connected to monitoring devices. A time-out was performed. Sedation was administered. Once the patient was adequately sedated, a digital rectal exam was performed and was normal. The scope was then inserted and advanced to the cecum where the appendiceal orifice was identified and photographed. The scope was then slowly withdrawn over greater than 6 minutes. The mucosa was thoroughly inspected. There was diverticulosis predominantly in the sigmoid colon. The scope was retroflexed in the rectum. Some hemorrhoids were noted. No other abnormalities were seen. The scope was straightened and removed. The patient was awakened and brought to recovery. Scope withdrawal time: 8 minutes Sedation time: 18 minutes EBL: 0 Findings: Diverticulosis Post-procedure Disposition: PACU
[2023-05-29 08:15] VITALS: BP 112/69; PULSE 52; RESP 18; O2SAT 96
[2023-05-29 08:21] VITALS: BP 117/64; PULSE 61; RESP 12; TEMP 36.4; O2SAT 95
[2023-05-29 08:27] VITALS: BP 136/72; PULSE 54; RESP 12; TEMP 36.4; O2SAT 94
== END 2023-05-29 08:45 | disposition home or self-care (01) ==
PROVIDERS: PCP Family Medicine; Referring Provider Surgery; Visit Provider Surgery
PROC: 0DJD8ZZ Inspection of Lower Intestinal Tract, Via Natural or Artificial Opening Endoscopic (ICD-10-PCS; CPT 45378; principal; 2023-05-29 07:45)
DX: Z12.11 Encounter for screening for malignant neoplasm of colon (principal); K57.30 Diverticulosis of large intestine without perforation or abscess without bleeding; K64.8 Other hemorrhoids
CPT/HCPCS: 45378; J2704

== ENCOUNTER → 2023-09-09 09:12 | Outpatient (CLI) | payer OTHER, SELFPAY ==
[2023-09-09 10:03] LABS: Add Manual Diff / Slide Review NO; Basophils Absolute Auto 100 /uL (0-100); Basophils Percent Auto 0.8 % (0-2); Eosinophils Absolute Auto 300 /uL (0-450); Eosinophils Percent Auto 3.8 % (2-4); Hematocrit 44.3 % (41-53); Hemoglobin 15.4 g/dL (13.5-17.5); Lymphocytes Absolute Auto 1100 /uL (1100-4500); Lymphocytes Percent Auto 16.1 % (25-40); Mean Corpuscular HGB Conc 34.8 % (30-36); Mean Corpuscular Hemoglobin 31.5 PG (26-34); Mean Corpuscular Volume 90.6 fL (80-100); Monocytes Absolute Auto 600 /uL (0-900); Monocytes Percent Auto 8.9 % (3-14); Neutrophils Absolute Auto 4800 /uL (1500-7000); Neutrophils Percent Auto 70.4 % (50-75); Platelet Count 176 X10^3/uL (150-400); Red Blood Cell Count 4.89 X10^6/uL (4.5-5.9); Red Cell Distribution Width 12.9 % (11.6-14.8); White Blood Cell Count 6.8 X10^3/uL (4.5-11.0)
[2023-09-09 10:26] LABS: Alanine Aminotransferase 37 IU/L (<50); Albumin 4.2 g/dL (3.5-5.0); Albumin Globulin Ratio 1.6 (1.0-2.8); Alkaline Phosphatase 60 U/L (38-126); Aspartate Aminotransferase 31 IU/L (17-59); BUN Creatinine Ratio 17.9 (6-22); Bilirubin Total 0.7 mg/dL (0.2-1.3); Blood Urea Nitrogen 14 mg/dL (9-20); Calcium 9.2 mg/dL (8.4-10.2); Carbon Dioxide 26 mmol/L (22-32); Chloride 103 mmol/L (98-107); Estimated Glomerular Filt Rate > 60 mL/min (>60); Globulin 2.7 g/dL (1.7-4.1); Glucose 98 mg/dL (80-110); HEMOLYSIS < 15 (0-50); Potassium 4.3 mmol/L (3.4-5.1); Sodium 135 mmol/L (137-145); Total Protein 6.9 g/dL (6.3-8.2)
[2023-09-09 10:28] LABS: NT-proBNP (BNP-Adult 18+) 23 pg/mL (<450)
== END ==
PROVIDERS: PCP Family Medicine; Referring Provider Physician Assistant; Visit Provider Physician Assistant
DX: R05.9 Cough, unspecified (principal)
CPT/HCPCS: 36415; 80053; 83880; 85025

== ENCOUNTER → 2023-09-09 13:49 | Outpatient (CLI) | payer OTHER, SELFPAY ==
--- NOTE | 2023-09-09 13:50 | DI.RAD.S_ITS ---
PROCEDURE: XR CHEST 2V INDICATIONS: Cough x 1 month TECHNIQUE: 2 views of the chest were acquired. COMPARISON: None. FINDINGS: Surgical changes and devices: None. Lungs and pleura: Mild diffuse interstitial prominence. No focal infiltrates.. No pleural effusions or pneumothorax. Mediastinum: Mediastinal contours are normal. Heart size is normal. Bones and chest wall: No suspicious bony abnormalities. Soft tissues appear unremarkable. IMPRESSION: Normal heart size. Mild diffuse interstitial prominence of uncertain chronicity. Dictated by: Matt Paz M.D. on 09/09/2023 at 15:51 Approved by: Matt Paz M.D. on 09/09/2023 at 15:54
== END ==
PROVIDERS: PCP Family Medicine; Referring Provider Physician Assistant; Visit Provider Physician Assistant
DX: R05.9 Cough, unspecified (principal)
CPT/HCPCS: 36415; 71046; 80053; 83880; 85025

== ENCOUNTER → 2023-09-21 12:27 | Outpatient (CLI) | payer OTHER, SELFPAY ==
--- NOTE | 2023-09-21 12:28 | DI.ECHO.S_ITS ---
[place] [facility]---------+ [facility] +---------+ : : [address] : : : : [id number] : : : : Phone: [phone] Echocardiogram Report + + :Name: MOE NAYAK Study Date: 09/21/2023 Height: 70 in : :[facility] ReadingLocation: Weight: 180 lb : : Gender: Male BSA: 2.0 m2 : :: 1945 Age: 78 yrs BP: 146/89 mmHg: :Reason For Study: MURMUR : :Ordering Physician: FLAKO, : :MARIA LUISA Performed By: Vicky Fitzgerald : :Referring: MARIA LUISA ARRIOLA : + + Interpretation Summary Sinus bradycardia. Normal LV size and wall thickness; EF is 50-55%. Stage I diastolic dysfunction. Normal chamber sizes. Aortic valve is a trileaflet structure with moderately thickened and calcified leaflets and mild associated aortic stenosis. Borderline dilated ascending aorta. No prior study available for comparison. Procedure: A two-dimensional transthoracic echocardiogram with color flow and Doppler was performed. The study quality was technically adequate. There is no prior echocardiogram noted for this patient. The patient was in sinus bradycardia with heart rates between 52-55 bpm during the exam. Left Ventricle: The left ventricle is normal in size and wall thickness. The ejection fraction is estimated to be 50-55%. Right Ventricle: The right ventricle is normal in size and function. Atria: The left atrial size is normal. Right atrial size is normal. There is no Doppler evidence for an interatrial shunt. Mitral Valve: The mitral valve is normal in structure and function. There is trace mitral regurgitation. Aortic Valve: The aortic valve is trileaflet. The aortic valve is mildly calcified. There is mild aortic stenosis. The peak aortic velocity is 2.0 m/sec. The aortic valve mean gradient is 9 mmHg. The calculated aortic valve area is 1.6 cm2. There is trace aortic regurgitation. Tricuspid Valve: The tricuspid valve is normal in structure and function. There is a trace or physiologic amount of tricuspid regurgitation. Pulmonic Valve: The pulmonic valve leaflets are thin and pliable; valve motion is normal. There is trace pulmonic regurgitation. Great Vessels: The aortic root is normal size. The ascending aorta is mildly enlarged. The IVC is of normal diameter and collapses greater than 50% with a sniff. This suggests a low right atrial pressure of 3 mm Hg. Pericardium/ Pleura There is no pericardial effusion. There is no pleural effusion. MMode/2D Measurements & Calculations LVIDd: 4.7 cm LVOT diam: 2.0 cm LVIDs: 3.3 cm Ao root diam: 3.6 cm FS: 30.3 % asc Aorta Diam: 3.9 cm IVSd: 0.98 cm Ao Arch Diam (Prox Trans): 3.4 cm LVPWd: 0.93 cm LV echols. diameter/BSA (cm/m^2): 2.4 LV sys. diameter/BSA (cm/m^2): 1.6 LA A2 area: 18.4 cm2 RA long axis: 4.8 cm LA A4 area: 9.9 cm2 RA area: 10.5 cm2 LA length (vol): 4.0 cm RA vol: 19.5 ml LA vol: 38.6 ml RA : 9.8 ml/m2 LA vol index: 19.3 ml/m2 IVC diam: 1.5 cm RVD1 (basal): 3.0 cm TAPSE: 2.0 cm Doppler Measurements & Calculations Ao V2 max: 196.0 cm/sec LVOT Max Elliott: 102.9 cm/sec Ao V2 mean: 139.2 cm/sec LV V1 max P.2 mmHg Ao max P.2 mmHg LV V1 VTI: 21.3 cm Ao mean P.8 mmHg MARCEL(I,D): 1.6 cm2 Ao V2 VTI: 41.6 cm MARCEL(V,D): 1.7 cm2 sev ratio: 0.51 MARCEL indexed to BSA (cm^2/m^2): 0.82 MV E max elliott: 55.1 cm/sec PA V2 max: 86.8 cm/sec MV A max elliott: 72.0 cm/sec PA V2 mean: 61.9 cm/sec MV E/A: 0.77 PA mean P.7 mmHg Med Peak E' Elliott: 6.4 cm/sec PA pr(Accel): 25.9 mmHg E/E' med: 8.6 Lat Peak E' Elliott: 7.7 cm/sec E/E' lat: 7.1 E/e' average: 7.9 MV dec time: 0.23 sec SV(LVOT): 67.9 ml Electronically signed by: Sydnee Camargo M.D. on Reading Physician:09/22/2023 12:11 AM
== END ==
PROVIDERS: PCP Family Medicine; Referring Provider Family Medicine; Visit Provider Family Medicine
DX: I35.0 Nonrheumatic aortic (valve) stenosis (principal); R01.1 Cardiac murmur, unspecified; I77.89 Other specified disorders of arteries and arterioles
CPT/HCPCS: 93306

== ENCOUNTER → 2024-09-22 12:28 | Outpatient (CLI) | payer OTHER, SELFPAY ==
--- NOTE | 2024-09-22 12:29 | DI.ECHO.S_ITS ---
[facility]---------+ [facility] : : [address] : [address] : : [id number] : : Phone: [phone] Echocardiogram Report + + :Name: MOE NAYAK Study Date: 09/22/2024 Height: 70 in : :[facility] ReadingLocation: Weight: 180 lb : : Gender: Male BSA: 2.0 m2 : :: 1945 Age: 79 yrs BP: 146/90 mmHg: :Reason For Study: 1 YEAR FOLLOW UP MURMUR : :Ordering Physician: FLAKO, : :MARIA LUISA Performed By: Vicky Fitzgerald : :Referring: MARIA LUISA ARRIOLA : + + Interpretation Summary Normal sinus rhythm. Normal LV size and wall thickness. Normal wall motion and LV systolic function. Ejection fraction is 60-65%. Stage I diastolic dysfunction. Aortic valve leaflets are mildly thickened and calcified, and there is mild associated aortic stenosis with peak velocity 2.2 m/s and mean gradient of 11 mmHg. Otherwise, no significant valvular abnormalities. Normal chamber sizes. Compared to prior echo obtained September 21, 2023, peak velocity lorena from 2 m/s up to 2.2 m/s. Mean gradient lorena from 9 mmHg to 11 mmHg. Given current rate of progression it is okay to monitor patient clinically or consider repeating echocardiogram in 2 years. Procedure: A two-dimensional transthoracic echocardiogram with color flow and Doppler was performed. The study quality was technically adequate. Comparison is made with the echocardiogram of 09/21/2023. The patient was in sinus bradycardia with heart rates between 54-64 bpm during the exam. Left Ventricle: The left ventricle is normal in size and wall thickness. The ejection fraction is estimated to be 55-60%. Right Ventricle: The right ventricle is normal in size and function. Atria: The left atrial size is normal. Right atrial size is normal. There is no Doppler evidence for an interatrial shunt. Mitral Valve: The mitral valve leaflets appear to open well. There is no mitral regurgitation noted. Aortic Valve: The aortic valve is trileaflet. The aortic valve is mildly calcified. There is mild aortic stenosis. The peak aortic velocity is 2.2 m/sec. The aortic valve mean gradient is 11 mmHg. The calculated aortic valve area is 1.3 cm2. There is mild aortic regurgitation. Tricuspid Valve: The tricuspid valve leaflets are thin and pliable. There is trace tricuspid regurgitation. Pulmonary artery pressures cannot be estimated because of the lack of a measurable TR jet velocity. Pulmonic Valve: The pulmonic valve leaflets are thin and pliable; valve motion is normal. There is no pulmonic valvular regurgitation. Great Vessels: The aortic root is normal size. The dimensions of the ascending aorta are normal. The IVC is of normal diameter and collapses greater than 50% with a sniff. This suggests a low right atrial pressure of 3 mm Hg. Pericardium/ Pleura There is no pericardial effusion. There is no pleural effusion. MMode/2D Measurements & Calculations LVIDd: 4.7 cm LVOT diam: 2.0 cm LVIDs: 3.3 cm Ao root diam: 3.7 cm FS: 30.3 % asc Aorta Diam: 3.7 cm IVSd: 0.95 cm Ao Arch Diam (Prox Trans): 3.4 cm LVPWd: 0.87 cm LV echols. diameter/BSA (cm/m^2): 2.4 LV sys. diameter/BSA (cm/m^2): 1.6 LA A2 area: 21.2 cm2 RA long axis: 5.6 cm LA A4 area: 18.0 cm2 RA area: 17.2 cm2 LA length (vol): 5.6 cm RA vol: 45.2 ml LA vol: 57.9 ml RA : 22.6 ml/m2 LA vol index: 29.0 ml/m2 IVC diam: 1.6 cm RVD1 (basal): 3.9 cm TAPSE: 1.7 cm Doppler Measurements & Calculations Ao V2 max: 241.5 cm/sec LVOT Max Elliott: 101.7 cm/sec Ao V2 mean: 150.0 cm/sec LV V1 max P.1 mmHg Ao max P.3 mmHg LV V1 VTI: 23.5 cm Ao mean P.1 mmHg MARCEL(I,D): 1.6 cm2 Ao V2 VTI: 45.6 cm MARCEL(V,D): 1.3 cm2 sev ratio: 0.51 MARCEL indexed to BSA (cm^2/m^2): 0.78 MV E max elliott: 58.2 cm/sec PA V2 max: 117.5 cm/sec MV A max elliott: 61.9 cm/sec PA V2 mean: 74.7 cm/sec MV E/A: 0.94 PA mean P.5 mmHg Med Peak E' Elliott: 5.5 cm/sec PA pr(Accel): 19.9 mmHg E/E' med: 10.6 Lat Peak E' Elliott: 7.6 cm/sec E/E' lat: 7.6 E/e' average: 9.1 MV dec time: 0.27 sec Pulm A Revs Elliott: 29.0 cm/sec SV(LVOT): 71.3 ml Pulm A Revs Dur: 0.08 sec Electronically signed by: Sydnee Camargo M.D. on Reading Physician:09/22/2024 02:02 PM
== END ==
PROVIDERS: PCP Family Medicine; Referring Provider Family Medicine; Visit Provider Family Medicine
DX: I35.2 Nonrheumatic aortic (valve) stenosis with insufficiency (principal); R01.1 Cardiac murmur, unspecified; R00.1 Bradycardia, unspecified
CPT/HCPCS: 93306